=== PATIENT | male | born 1975 | race Caucasian/White ===

== ENCOUNTER 2018-01-01 17:53 | Emergency (ER) | payer BC ==
[~2018-01-01] VITALS: Ht 177.8 cm; Wt 72.6 kg
[2018-01-01] MEDS ORDERED: NOVOLIN R100 UNIT/3 SUBQ (18:10)
== END 2018-01-01 18:55 | disposition home or self-care (01) ==
LOC: ER 17:53
DX: E10.649 Type 1 diabetes mellitus with hypoglycemia without coma (principal); F17.210 Nicotine dependence, cigarettes, uncomplicated